=== PATIENT | male | born 1950 | race African-American/Black ===

== ENCOUNTER 2023-11-27 12:57 | Emergency (ER) | payer MEDICAID ==
[~2023-11-27] VITALS: Ht 180.3 cm; Wt 90.9 kg
[2023-11-27 13:31] VITALS: BP 221/98; PULSE 94; RESP 18; TEMP 98.3; O2SAT 99
== END 2023-11-27 16:20 | disposition home or self-care (01) ==
LOC: ER 12:57
DX: K40.90 Unilateral inguinal hernia, without obstruction or gangrene, not specified as recurrent (principal); H91.93 Unspecified hearing loss, bilateral; I10 Essential (primary) hypertension
CPT/HCPCS: 99281

== ENCOUNTER 2024-08-08 07:58 | Emergency (ER) | payer MEDICAID ==
[~2024-08-08] VITALS: Ht 180.3 cm; Wt 94.3 kg
[2024-08-08 08:06] VITALS: O2SAT 100
[2024-08-08 09:36] LABS: CLARITY URINE CLEAR (CLEAR); COLOR URINE YELLOW (YELLOW); GLUCOSE URINE NEGATIVE (NEGATIVE); KETONES URINE NEGATIVE (NEGATIVE); LEUKOCYTE ESTERASE URINE TRACE (NEGATIVE); NITRITE URINE NEGATIVE (NEGATIVE); OCCULT BLOOD URINE 2+ (NEGATIVE); PH URINE 6.5 (4.5-8.0); PROTEIN URINE TRACE (NEGATIVE); SPECIFIC GRAVITY URINE 1.012 (1.005-1.030); UROBILINOGEN URINE 0.2 E.U./dL (0.2-1.0)
[2024-08-08 09:53] LABS: RBC URINE 50-100 /hpf (0-2)
[2024-08-08 09:56] LABS: SQUAMOUS EPITHELIAL CELL URINE NONE SEEN /lpf (RARE/1+)
[2024-08-08 09:57] LABS: BACTERIA URINE FEW; YEAST URINE NONE SEEN
[2024-08-08 10:15] VITALS: BP 144/82; PULSE 78; RESP 16; TEMP 36.8; O2SAT 100
== END 2024-08-08 10:16 | disposition home or self-care (01) ==
LOC: ER 08:08
DX: R33.9 Retention of urine, unspecified (principal); I10 Essential (primary) hypertension; Z90.79 Acquired absence of other genital organ(s); Z98.890 Other specified postprocedural states
CPT/HCPCS: 51702; 81003; 99284